=== PATIENT | male | born 1995 | race Caucasian/White ===

== ENCOUNTER 2020-02-19 09:06 | Emergency (ER) | payer OTHER, SELFPAY ==
--- NOTE | ~2020-02-19 | XR_ITS ---
EXAMINATION: XR chest 1V portable 02/19/2020 10:08 INDICATION: Cough, rash, fever and vomiting PROCEDURE: AP portable chest COMPARISON: No prior studies for comparison. FINDINGS: The lungs are clear. The cardiomediastinal silhouette is within normal limits. There are no pleural effusions. There is no pneumothorax suspected. IMPRESSION: 1: NO ACUTE CARDIOPULMONARY DISEASE. Reviewed, dictated and finalized at location A.
--- NOTE | 2020-02-19 09:13 | ED.GENADULT ---
HPI - General Adult General Chief complaint: Upper Respiratory Infection Stated complaint: rash/fever/vomiting Time Seen by Provider: 02/19/20 09:12 Source: patient Mode of arrival: ambulatory Limitations: no limitations History of Present Illness HPI narrative: Patient is a 24-year-old male who presents for evaluation of fever, nausea, vomiting, diarrhea and rash. Patient reports a 3-day history of worsening malaise, myalgias, hot flashes. Patient states he developed nausea, and nonbilious, nonbloody emesis over the past 36 hours. Patient also with watery diarrhea. He reports a dry cough, shortness of breath occurs after vomiting but then resolves. Patient denies any abdominal pain. He reports a rash that then developed over his entire body, that did improve with Benadryl. No new soaps, lotions or detergents. 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 Related Data Allergies Allergy/AdvReac Type Severity Reaction Status Date / Time No Known Allergies Allergy Verified 02/19/20 11:02 Review of Systems Review of Systems: Narrative: CONSTITUTIONAL: Reports fever and chills EYES: Denies visual changes, redness, or discharge. ENT: Denies rhinorrhea, congestion, reports sore throat, denies otalgia CARDIOVASCULAR: Denies chest pain, palpitations, or edema. RESPIRATORY: Reports dry cough, shortness of breath that is now resolved GASTROINTESTINAL: Denies abdominal pain, reports nausea, vomiting and diarrhea GENITOURINARY: Denies dysuria or hematuria. SKIN: Reports rash over entire body, itching skin MUSCULOSKELETAL: Denies back pain, joint pain, reports myalgias NEUROLOGIC: Denies headache, numbness, or weakness. 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 EYES: PERRLA and EOMI. ENT: Nares clear, no rhinorrhea or epistaxis. Mucous membranes dry, oropharynx mildly erythematous, uvula is midline, no petechiae, no exudate NECK: Supple. CHEST: No respiratory distress, breathing even and non labored HEART: Regular rate, sinus rhythm ABDOMEN:Non distended, non tender EXTREMITIES: Normal range of motion. No edema. SKIN: Maculopapular rash overlying the lower abdomen, right and left thigh, blanches with pressure, mild warmth, no blistering, no ecchymosis, no petechiae NEURO:No focal deficits. Alert and oriented x3 Course Vital Signs Vital signs: Vital Signs Temperature 36.8 C 02/19/20 09:28 Pulse Rate 77 02/19/20 09:28 Respiratory Rate 14 02/19/20 09:28 Blood Pressure 132/76 02/19/20 09:28 Pulse Oximetry 98 02/19/20 09:28 Temperature 36.8 C 02/19/20 09:28 Pulse Rate 71 02/19/20 11:33 Respiratory Rate 16 02/19/20 11:33 Blood Pressure 130/73 02/19/20 11:33 Pulse Oximetry 99 02/19/20 11:33 Medical Decision Making MDM Narrative Medical decision making narrative: Patient presenting for evaluation of nausea, vomiting, diarrhea and rash. At the time of initial assessment, ABCs are intact and vital signs are stable. Patient has what appears to be a viral exanthem that blanches with pressure, no sign of petechiae or cellulitis. There are no urticaria, this is not a pruritic rash, making me think
[2020-02-19 09:28] VITALS: BP 132/76; PULSE 77; RESP 14; TEMP 36.8; O2SAT 98
--- NOTE | 2020-02-19 09:29 | ECG_ITS ---
Measurements Intervals [place] Rate: 64 P: 54 KS: 160 QRS: 20 QRSD: 106 T: 41 QT: 383 QTc: 397 Interpretive Statements SINUS RHYTHM NONSPECIFIC T-WAVE ABNORMALITY- ANTERIOR LEADS BORDERLINE ECG Electronically Signed On 02-19-2020 10:13:43 CDT by Graham Clemons D.O.
[2020-02-19] MEDS: SODIUM CHLORIDE 0.9% IV 1,000 ML 999 ML IV CONT (09:44)
[2020-02-19] MEDS: ONDANSETRON INJ 4 MG/2 ML VIAL IV PUSH (09:45)
[2020-02-19 09:47] LABS: Basophils Percent Auto 0.2 % (0.2-1.2); Eosinophils Percent Auto 0.2 % (0-4.4); Hematocrit 48.2 % (42.0-52.0); Hemoglobin 16.9 g/dL (14.0-18.0); Immature Granulocyte Absolute 0.08 K/mm3 (0.00-0.031); Immature Granulocyte Percent A 0.6 % (0-0.5); Lymphocytes Absolute Auto 0.75 K/mm3 (0.9-3.2); Lymphocytes Percent Auto 5.8 % (18.3-44.2); Mean Corpuscular HGB Conc 35.1 g/dl (32-36); Mean Corpuscular Volume 85.6 fl (80-100); Mean Platelet Volume 10.8 fl (7.4-10.4); Monocytes Absolute Auto 0.8 K/mm3 (0.1-0.6); Monocytes Percent Auto 6.4 % (2.6-8.5); Neutrophils Absolute Auto 11.2 K/mm3 (1.3-6.7); Neutrophils Percent Auto 86.8 % (45.5-73.1); Platelet Count Result 262 k/mm3 (150-375); Red Blood Count 5.63 M/mm3 (4.6-6.20); Red Cell Distribution Width 12.1 % (11.5-14.5); White Blood Count 12.9 K/mm3 (4.5-10.0)
[2020-02-19 10:00] LABS: INR 1.1; Prothrombin Time 13.7 Seconds (11.1-14.7)
[2020-02-19 10:01] LABS: Partial Thromboplastin Time 30.3 SECONDS (22.3-36.8)
[2020-02-19 10:06] LABS: Alanine Aminotransferase 49 U/L (4-50); Albumin Level 4.8 g/dL (3.5-5.1); Alkaline Phosphatase 138 U/L (38-126); Aspartate Amino Transferase 40 U/L (17-59); Bilirubin,Total 1.6 mg/dL (0.2-1.3); Blood Urea Nitrogen 21 mg/dL (9-20); CRP 2.7 mg/dL (<1.0); Calcium 9.4 mg/dL (8.4-10.2); Carbon Dioxide 26 mmol/L (22-30); Chloride 99 mmol/L (98-107); Estimated CRCL calculation 117 ml/min; Estimated Glomerular Filt Rate > 60; Glucose 130 mg/dL (75-110); Potassium 4.4 mmol/L (3.4-5.0); Sodium 136 mmol/L (137-145)
[2020-02-19 10:11] LABS: Troponin I < 0.012 ng/mL (0.000-0.034)
[2020-02-19 10:40] LABS: Add Urine Microscopic? YES; Appearance Urine Clear (Clear); Bacteria Urine Trace /hpf; Bilirubin Urine Negative (Negative); Blood Urine Negative (Negative); Color Urine Yellow (Yellow); Glucose Urine UA Negative (Negative); Ketones Urine 1+ mg/dL (Negative); Leukocyte Esterase Ur Negative LEU/UL (Negative); Mucus Urine Rare /lpf; Nitrate Urine Negative (Negative); Protein Urine 2+ mg/dL (Negative); RBC Urine 0-2 /hpf (0-2); Urobilinogen Urine Negative mg/dL (<2.0); WBC Urine 0-3 /hpf
[2020-02-19 10:41] LABS: Specific Grav Ur 1.036 (1.001-1.035)
[2020-02-19 11:33] VITALS: BP 130/73; PULSE 71; RESP 16; O2SAT 99
[2020-02-19 18:07] LABS: SARS-CoV-2 RNA PCR Negative
== END 2020-02-19 11:39 | disposition home or self-care (01) ==
PROVIDERS: Emergency Provider Emergency Medicine
DX: K52.9 Noninfective gastroenteritis and colitis, unspecified (principal); B09 Unspecified viral infection characterized by skin and mucous membrane lesions; Z20.828 Contact with and (suspected) exposure to other viral communicable diseases; F17.290 Nicotine dependence, other tobacco product, uncomplicated; R94.31 Abnormal electrocardiogram [ECG] [EKG]
CPT/HCPCS: 36415; 71045; 80053; 81001; 84484; 85025; 85610; 85730; 86140; 87081; 87635; 87880; 93005; 96361; 96374; 96375; 99284; C9803; J0131; J1100; J1200; J2405; J7030; U0003

== ENCOUNTER 2024-12-05 09:25 | Outpatient (CLI) | payer OTHER, SELFPAY ==
--- OUTSIDE RECORDS SUMMARY | 2024-12-05 10:34 | XMS_ITS | Referral Summary ---
Author Organization [facility] Address [address] [place] [address] Care Team Providers Care Embossing Tool Setter Name Role Phone Unavailable Primary Care Provider Unavailabl e Source Comments [facility],non-owned Affiliates and Associated Physician Practices is amultiple site organization consisting of ambulatory clinics and hospital sitesin [place], [place], [place] and [place]. This disclosure is being madepursuant to the Care Everywhere program and may not contain all information available regarding this patient. Last updated 18.[facility] [employer] Allergies No known active allergies Medications * Be aware that medications may not be up to date on this document. Alwaysverify current medications with the patient. Medication Sig Dispensed Refills Start Date End Date Status ofloxacin (FLOXIN) 0.3 % otic solution Instill 4 drops into both ears 2 times daily 1 bottles 3 05/15/2018 Active HYDROcodone-acetamin ophen (NORCO) 5-325 MG tablet Take 2 tablets by mouth every 4 hours as needed for Pain 30 tablet 08/01/2018 Active docusate sodium (COLACE) 100 MG capsule Take 1 capsule by mouth once daily 30 capsule 08/01/2018 Active Active Problems Problem Noted Date Diagnosed Date Mixed conductive and sensori neural hearing loss of left ear with restricted hearing of right ear 06/15/2018 Amblyopia 05/15/2018 Astigmatism 05/15/2018 Counseling on injury prevention 05/15/2018 Health examination of defined subpopulation 04/26 Hypermetropia 05/15/2018 Other examination of ears and hearing 05/15/2018 Pain in soft tissues of limb 05/15/2018 Social History Tobacco Use Types Packs/Day Years Used Date Smoking Tobacco: Former Cigarettes Q uit: 05/01/2018 Smokeless Tobacco: Never Comments:quit last May Alcohol Use Standard Drinks/Week Comments Yes 0 (1 standard drink = 0.6 oz pur e alcohol) week-endsmaybe 6 drinks Sex and Gender Information Value Date Recorded Sex Assigned at Not on file Gender Identity Not on file Sexual Orientation Not on file Last Filed Vital Signs Vital Sign Reading Time Taken Comments Blood Pressure 146/84 08/01/2018 6:00 PM TECHNICAL ACCOUNT MANAGER Pulse 74 08/01/2018 6:00 PM TECHNICAL ACCOUNT MANAGER Temperature 36.9 C (98.4 F) 08/01/2018 4:50 PM TECHNICAL ACCOUNT MANAGER Respiratory Rate 16 08/01/2018 6:00 PM TECHNICAL ACCOUNT MANAGER Oxygen Saturation 97% 08/01/2018 6:00 PM TECHNICAL ACCOUNT MANAGER Inhaled Oxygen Concentration 21% 08/01/2018 4 :25 PM TECHNICAL ACCOUNT MANAGER Weight 95.4 kg (210 lb 6.4 oz) 08/01/2018 7:23 A M TECHNICAL ACCOUNT MANAGER Height 185.4 cm (6' 1 ) 08/01/2018 7:23 AM TECHNICAL ACCOUNT MANAGER Body Mass Index 27.76 08/01/2018 7:23 AM TECHNICAL ACCOUNT MANAGER Plan of Treatment Not on file Medical Devices Explanted Type Area Liquefaction And Regasification Helper Device Identifier Shelf Expiration Date Model / Serial / Lot Sht Niharika 8x6x.005in Aldsl Niharika Shrt Term Implanted:Qty: 1 Explanted:Qty: 1 on 08/01/2018 at [facility] Left: Ear Products For Surgery 07/26/2022 600-05 / / [id number]
--- OUTSIDE RECORDS SUMMARY | 2024-12-05 10:34 | XMS_ITS | Clinical Summary ---
Author Organization [facility] Address [address] [address] Care Team Providers Care Manager Data Warehouse Name Role Phone Unavailable Primary Care Provider Unavailabl e Source Comments [facility],non-owned Affiliates and Associated Physician Practices is amultiple site organization consisting of ambulatory clinics and hospital sitesin [place], [place], [place] and [place]. This disclosure is being madepursuant to the Care Everywhere program and may not contain all information available regarding this patient. Last updated 18.[facility] Allergies No known active allergies Medications * [...] Pain in soft tissues of limb 05/15/2018 Family History Medical History Relation Name Comments Alcohol abuse Father Hypertension Father Relation Name Status Comments Father Social History Tobacco Use Types Packs/Day Years [...] Comments Blood Pressure 146/84 08/01/2018 6:00 PM LANDSCAPING MANAGER Pulse 74 08/01/2018 6:00 PM LANDSCAPING MANAGER Temperature 36.9 C (98.4 F) 08/01/2018 4:50 PM LANDSCAPING MANAGER Respiratory Rate 16 08/01/2018 6:00 PM LANDSCAPING MANAGER Oxygen Saturation 97% 08/01/2018 6:00 PM LANDSCAPING MANAGER Inhaled Oxygen Concentration 21% 08/01/2018 4 :25 PM LANDSCAPING MANAGER Weight 95.4 kg (210 lb 6.4 oz) 08/01/2018 7:23 A M LANDSCAPING MANAGER Height 185.4 cm (6' 1 ) 08/01/2018 7:23 AM LANDSCAPING MANAGER Body Mass Index 27.76 08/01/2018 7:23 AM LANDSCAPING MANAGER Plan of Treatment Health Maintenance Due Date Last Done Comments HIV SCREENING 2010 HEPATITIS C SCREENING 03/30/2013 DTAP/TDAP/TD VACCINES (1 - Tdap) 2014 HEPATITIS B VACCINE (1 of 3 - 19+ 3-dose series) 2014 COVID-19 VACCINE ( - 2023-2 5 season) 2024 INFLUENZA VACCINE (#1) 2024 DEPRESSION SCREENING 09/25/2024 ZOSTER VACCINE (1 of 2) 2045 HIB VACCINE Aged Out No longer eligi ble based on patient's age to complete this topic HPV VACCINE Aged Out No longer eligi ble based on patient's age to complete this topic MENINGOCOCCAL (Group B) VACC INE SHARED DECISION-MAKING Aged Out No longer eligibl e based on patient's age to complete this topic MENINGOCOCCAL GROUPS A/C/Y/W VACCINE Aged Out No longer eligible b ased on patient's age to complete this topic PNEUMOCOCCAL VACCINE Aged Out No long er eligible based on patient's age to complete this topic Medical Devices Explanted Type Area Log Loader Helper Device Identifier Shelf Expiration Date Model / Serial / Lot Sht Niharika 8x6x.005in Aldsl Niharika Shrt Term Implanted:Qty: 1 Explanted:Qty: 1 on 08/01/2018 at [facility] Left: Ear Products For Surgery 07/26/2022 600-05 / / [id number]
--- OUTSIDE RECORDS SUMMARY | 2024-12-05 10:34 | XMS_ITS | Patient Health Summary ---
Author Organization [facility] Address [address] [place] [address] Care Team Providers Care Draw In Hand Name Role Phone Unavailable Primary Care Provider Unavailabl e Note from [facility],non-owned Affiliates and Associated Physician Practices is amultiple site organization consisting of ambulatory clinics and hospital sitesin [place], [place], [place] and [place]. This disclosure is being madepursuant to the Care Everywhere program and may not contain all information available regarding this patient. Last updated 18.[facility] Allergies No known active allergies Medications * Be aware that medications may not be up to date on this document. Alwaysverify current medications with the patient. * ofloxacin (FLOXIN) 0.3 % otic solution(Started 05/15/2018) Instill 4 drops into both ears 2 times daily 3 refills remaining * HYDROcodone-acetaminophen (NORCO) 5-325 MG tablet(Started 08/01/2018) Take 2 tablets by mouth every 4 hours as needed for Pain * docusate sodium (COLACE) 100 MG capsule(Started 08/01/2018) Take 1 capsule by mouth once daily Active Problems Problem Noted Date Diagnosed Date [...] Comments Blood Pressure 146/84 08/01/2018 6:00 PM PER DIEM CLERK Pulse 74 08/01/2018 6:00 PM PER DIEM CLERK Temperature 36.9 C (98.4 F) 08/01/2018 4:50 PM PER DIEM CLERK Respiratory Rate 16 08/01/2018 6:00 PM PER DIEM CLERK Oxygen Saturation 97% 08/01/2018 6:00 PM PER DIEM CLERK Inhaled Oxygen Concentration 21% 08/01/2018 4 :25 PM PER DIEM CLERK Weight 95.4 kg (210 lb 6.4 oz) 08/01/2018 7:23 A M PER DIEM CLERK Height 185.4 cm (6' 1 ) 08/01/2018 7:23 AM PER DIEM CLERK Body Mass Index 27.76 08/01/2018 7:23 AM PER DIEM CLERK Medical Devices Explanted Type Area Dental Laboratory Supervisor Device Identifier Shelf Expiration Date Model / Serial / Lot Sht Niharika 8x6x.005in Aldsl Niharika Shrt Term Implanted:Qty: 1 Explanted:Qty: 1 on 08/01/2018 at [facility] Left: Ear Products For Surgery 07/26/2022 600-05 / / [id number] Procedures * PATHOLOGY TISSUE(Performed 08/01/2018) Performed for Mixed conductive and sensorineural hearing loss of left ear with restricted hearing of right ear * TYMPANOMASTOIDECTOMY(Performed 08/01/2018) Performed for Mixed conductive and sensorineural hearing loss of left ear with restricted hearing of right ear * ENDOTRACHEAL TUBE NOTE(Performed 08/01/2018) * CT TEMPORAL BONES WO CONTRAST(Performed 06/15/2018) Performed for Left chronic otitis media * NJ REMOVE CERUMEN IMPACTED W INSTR LEFT EAR(Performed 05/15/2018) Performed for Otorrhea, left Results * PATHOLOGY TISSUE (08/01/2018 1:48 PM PER DIEM CLERK) Case Report Surgical Pathology Report Case: [id number] Authorizing Provider: Dejon Cohen MD Collected: 08/01/2018 01:48 PM Ordering Location: [facility] Received: 08/02/2018 06:32 AM Pathologist: Sho Cronin MD Specimen: Cholesteatoma, content from left middle ear and mastoid 08/06/2018 5:45 PM [facility] Final Diagnosis Ear, left, middle ear, biopsy (A) - Cholesteatoma 08/06/2018 5:45 PM [facility] Microscopic Description and Comment A fragment of stroma has giant cells and cholesterol crystals, consistent with a cholesteatoma. Most of the tissue consists of flat strips of focally mildly inflamed stroma with some retained surface epithelium. 08/06/2018 5:45 PM [facility] Clinical History The patient is a 23-year-old man with a history of mixed conductive and sensorineural hearing loss of left ear with restricted hearing of right ear. Operative Procedure: Left tympanomastoidectomy. 08/06/2018 5:45 PM [facility] Gross Description The requisition and specimen(s) are identified with the patient name, Jorge Francisco. Received in formalin, specimen A, content from left middle ear and mastoid , is a single soliz-brown portion of tissue measuring 0.6 x 0.3 x 0.3 cm. The specimen is entirely submitted in cassette A1. ADH/naman 08/06/2018 5:45 PM [facility] Disclaimer The performance characteristics of all immunohistochemical and indirect immunofluorescence stains (if any) cited in this report were determined by the Histopathology Laboratory of [facility]. Some of these tests were developed by our own laboratory and have not been cleared or approved by the US Food and Drug Administration. The FDA does not require this test to go through premarket FDA review. These tests are used for clinical purposes. They should not be regarded as investigational or for research. This laboratory is certified under the Clinical Laboratory Improvement Amendments (CLIA) as qualified to perform high complexity clinical laboratory testing. This case has been personally reviewed and interpreted by the attending (teaching) pathologist. 08/06/2018 5:45 PM [facility] Embedded Images 08/06/2018 5:45 PM [facility] Biopsy, Excision EXCISION OF CHOLESTEATOMA / Unknown 08/01/2018 1:48 PM PER DIEM CLERK 08/02/2018 6:32 AM PER DIEM CLERK Dejon Cohen MD LAB - PATHOLOGY/C YTOLOGY ORDERABLES [facility] [address] [facility]. [address] [phone] * CT TEMPORAL BONES WO CONTRAST (06/15/2018 1:20 PM CDT) Anatomical Region Laterality Modality Head Computed Tomogra phy 06/15/2018 2:19 PM CDT Impressions 06/15/2018 2:30 PM CDT IMPRESSION: 1. Findings of bilateral cholesteatoma in the bilateral middle ear cavities. Tegmen tympani is intact. Scutum is preserved on each side. 2. There is fluid in the lateral right mastoid air cells and almost all the left mastoid air cells. Tegmen mastoideum is intact. This report was electronically signed by FRANCIS CLAYTON on 06/15/2018 2:30 PM . Narrative 06/15/2018 2:30 PM CDT HIGH-RESOLUTION CT TEMPORAL BONE WITHOUT INTRAVENOUS CONTRAST. HISTORY: Left chronic otitis media COMPARISON: None. TECHNIQUE: High-resolution axial scanning of the head through the temporal bones was performed without intravenous contrast administration, using 0.67 mm slice thickness images followed by coronal and axial reconstruction of the images by the technologist. FINDINGS: The images are slightly degraded by motion. On the right side, the external auditory canal and auricle appear normal. There are minimal secretions in the right external auditory canal. The right tympanic membrane is not thickened; but, appears retracted. Minimal air is visible in the right eustachian tube close to the middle ear cavity. Fluid is seen in some of the lateral right mastoid air cells. The tegmen mastoideum is intact. Best seen on the coronal images, there is soft tissue density in the right Prussak's space which is worrisome for cholesteatoma. The right ossicular chain is preserved and appears unremarkable. There is no evidence of resorption of scutum and tegmen tympani is intact. The vestibular aqueduct is normal. The bony labyrinth, internal auditory canal, and petrous apex appear normal. The carotid canal, jugular foramen, and course of the facial nerve appear normal. The right temporomandibular joint is within normal limits. On the left side, the auricle appear normal. There is circumferential soft tissue thickening of the external auditory canal which probably represent an otitis externa. The left tympanic membrane is not conspicuously visible. Scutum is preserved. Most of the left mastoid air cells are fluid-filled. The tegmen mastoideum is intact. There is soft tissue density/fluid in the mesotympanum and hypotympanum including in the left Prussak's space. Tegmen tympani is intact. The middle ear ossicles appear normal. The vestibular aqueduct is normal. The bony labyrinth, internal auditory canal, and petrous apex appear normal. The carotid canal, jugular foramen, and course of the facial nerve appear normal. There is extensive mucosal thickening of the left maxillary sinus and minimally the right maxillary sinus. The visualized portions of the skull base and the remainder of the imaged sinuses appear normal. No soft tissue abnormality is identified. Procedure Note Francis [place] MD - 06/15/2018 HIGH-RESOLUTION CT TEMPORAL BONE WITHOUT INTRAVENOUS CONTRAST. HISTORY: Left chronic otitis media COMPARISON: None. TECHNIQUE: High-resolution axial scanning of the head through thetemporal bones was performed without intravenous contrast administration, using 0.67 mm slice thickness images followed by coronal and axial reconstruction of the images by the technologist. FINDINGS: The images are slightly degraded by motion. On the right side, the external auditory canal and auricle appearnormal. There are minimal secretions in the right external auditory canal. The right tympanic membrane is not thickened; but, appears retracted.Minimal air is visible in the right eustachian tube close to the middle ear cavity. Fluid is seen in some of the lateral right mastoid air cells.The tegmen mastoideum is intact. Best seen on the coronal images, there is soft tissue density in the right Prussak's space which is worrisome for cholesteatoma. The right ossicular chain is preserved and appears unremarkable. There is no evidence of resorption of scutum and tegmen tympani is intact. The vestibular aqueduct is normal. The bonylabyrinth, internal auditory canal, and petrous apex appear normal. The carotid canal, jugular foramen, and course of the facial nerve appear normal.The right temporomandibular joint is within normal limits. On the left side, the auricle appear normal. There is circumferentialsoft tissue thickening of the external auditory canal which probablyrepresent an otitis externa. The left tympanic membrane is not conspicuously visible. Scutum is preserved. Most of the left mastoid air cells are fluid-filled. The tegmen mastoideum is intact. There is soft tissue density/fluid in the mesotympanum and hypotympanum including in the left Prussak's space. Tegmen tympani is intact. The middle ear ossiclesappear normal. The vestibular aqueduct is normal. The bony labyrinth, internal auditory canal, and petrous apex appear normal. The carotid canal,jugular foramen, and course of the facial nerve appear normal. There is extensive mucosal thickening of the left maxillary sinus and minimally the right maxillary sinus. The visualized portions of theskull base and the remainder of the imaged sinuses appear normal. No softtissue abnormality is identified. IMPRESSION: 1. Findings of bilateral cholesteatoma in the bilateral middle ear cavities. Tegmen tympani is intact. Scutum is preserved on each side. 2. There is fluid in the lateral right mastoid air cells and almost all the left mastoid air cells. Tegmen mastoideum is intact. This report was electronically signed by FRANCIS CLAYTON on 06/15/2018 2:30 PM . Dejon Cohen MD CT ORDERABLES * NJ REMOVE CERUMEN IMPACTED W INSTR LEFT EAR (05/15/2018 9:36 AM CDT) Narrative Dejon Cohen MD - 05/15/2018 9:36 AM CDT Dejon Cohen MD 05/15/2018 9:36 AM Procedure: Microscopic Otic Exam and Debris Removal Indication: Left-sided otorrhea Details: Informed consent was obtained. Purulent debris removal was necessary for source control as well as complete otologic examination. The patient was placed in the supine position. The operative microscope used to visualize both ear canals. Large amounts of purulent debris was removed from the EAC. The tympanic membrane demonstrated approximate 35% perforation with erythema and edema of the middle ear mucosa, tympanic membrane, as well as the EAC. The patient tolerated the procedure without complication. Dejon Cohen MD PROCEDURE/MINOR S URGICAL ORDERABLES
[2024-12-05 13:33] LABS: Hemoglobin 16.1 g/dL (14.0-18.0); Mean Corpuscular HGB Conc 34.3 g/dl (32-36); Mean Corpuscular Hemoglobin 29.5 pg (26-34); Mean Corpuscular Volume 86.2 fl (80-100); Mean Platelet Volume 10.5 fl (7.4-10.4); Platelet Count Result 242 k/mm3 (150-375); Red Blood Count 5.45 M/mm3 (4.6-6.20); Red Cell Distribution Width 12.5 % (11.5-14.5); White Blood Count 5.6 K/mm3 (4.5-10.0)
[2024-12-05 14:36] LABS: Alanine Aminotransferase 43 U/L (6-50); Albumin Level 4.8 g/dL (3.5-5.1); Alkaline Phosphatase 99 U/L (38-126); Anion Gap 12 mmol/L (4-12); Aspartate Amino Transferase 34 U/L (17-59); Bilirubin,Total 1.3 mg/dL (0.2-1.3); Blood Urea Nitrogen 17 mg/dL (9-20); Carbon Dioxide 27 mmol/L (22-30); Chloride 103 mmol/L (98-107); Cholesterol 189 mg/dL (0-200); Estimated Glomerular Filt Rate > 60; Glucose 93 mg/dL (65-110); HDL Direct 41 mg/dL; Potassium 4.3 mmol/L (3.4-5.0); Sodium 142 mmol/L (137-145); Triglycerides 110 mg/dL (<150)
[2024-12-05 16:10] LABS: LDL Cholesterol Direct 124 mg/dL
[2024-12-10 14:48] LABS: Testosterone Free 78.4 pg/mL (35.0-155.0); Testosterone Total 440 ng/dL (250-1100)
== END 2024-12-05 09:26 | disposition home or self-care (01) ==
LOC: ANHGOSHLAB 09:26
PROVIDERS: PCP Family Medicine; Visit Provider Family Medicine
DX: E66.3 Overweight (principal); Z79.899 Other long term (current) drug therapy; Z00.00 Encounter for general adult medical examination without abnormal findings; R53.83 Other fatigue
CPT/HCPCS: 36415; 80053; 80061; 82652; 84402; 84403; 84443; 85027